=== PATIENT | male | born 1965 | race Two or more races ===

== ENCOUNTER 2024-12-27 13:13 | Emergency (ER) | payer MEDICAID, OTHER ==
[~2024-12-27] VITALS: Ht 180.3 cm; Wt 100.0 kg
[2024-12-27] MEDS ORDERED: ONDANSETRON HCL 4 MG/2 ML VIAL IV ONE (13:30)
[2024-12-27] MEDS ORDERED: SODIUM CHLORIDE 0.9% 1,000 ML IV ONE (13:30)
[2024-12-27 13:52] VITALS: BP 139/85; PULSE 88; RESP 16; TEMP 99; O2SAT 99
[2024-12-27 14:00] LABS: Hematocrit 43.3 % (41.0-53.0); Hemoglobin 14.9 g/dL (13.5-17.5); Mean Corpuscular Hemoglobin 31.9 pg (28.0-32.0); Mean Corpuscular Volume 92.5 fL (80.0-100.0); Nucleated Red Blood Cells % 0.1 %
[2024-12-27 14:15] LABS: Alanine Aminotransferase 27 U/L (7-40); Albumin 4.8 g/dL (3.2-4.8); Alkaline Phosphatase 66 U/L (46-116); Anion Gap 16 (5-15); BUN/Creatinine Ratio 16.1 (10.0-20.0); Blood Urea Nitrogen 18 mg/dL (9-23); Calcium 9.7 mg/dL (8.7-10.4); Carbon Dioxide 23 mmol/L (20-31); Chloride 103 mmol/L (98-107); Glucose 104 mg/dL (74-106); Potassium 4.3 mmol/L (3.5-5.1); Sodium 142 mmol/L (136-145); Total Protein 6.9 g/dL (5.7-8.2)
[2024-12-27 14:20] LABS: Bilirubin, Total 1.4 mg/dL (0.2-1.0)
[2024-12-27] MEDS ORDERED: HALOPERIDOL LACTATE 5 MG/ML INJ VIAL IM ONE (14:30)
--- NOTE | 2024-12-27 14:30 | DVH ---
CT HEAD WITHOUT CONTRAST INDICATION: syncope EXAM DATE: 12/27/2024 02:02 PM COMPARISON: None RADIATION DOSE: CTDIvol: 59 mGy, DLP: 1055 mGy*cm PROCEDURE: CT scans of the head were obtained from the vertex to the skull base. Sagittal and coronal reconstructions were provided. All CT scans at this medical facility are performed using dose modulation techniques as appropriate t o a performed exam including the following: Automated exposure control was utilized; adjustment of th e MA and/or KV according to patient size; and use of iterative reconstruction technique. FINDINGS: There is sulcal and ventricular prominence. The brainshows normal morphology and smith-whi te matter differentiation, without intracranial hemorrhage, extra-axial fluid collection, mass effect or acute large vessel infarct. The ventricles are normal in size. The basal cisterns are patent. The skull and visible facial bones are intact. The paranasal sinuses, mastoid air cells and middle ear c avities are well-aerated. The soft tissues of the scalp are unremarkable. IMPRESSION: No acute intracranial abnormality.
[2024-12-27 14:33] LABS: Lactic Acid w/Reflex 3.3 mmol/L (0.4-2.0)
--- NOTE | 2024-12-27 14:38 | DVH ---
CHEST RADIOGRAPH Indication: syncope Technique: Single frontal view of the chest was obtained Comparison: None FINDINGS: Lines and Tubes: None Lungs: No focal consolidation. Questionable 1 cm nodule left upper lung field may represent fortuitou s confluence of the left 6th rib and the scapula. Pulmonary nodule is of concern recommend lateral ch est x-ray and/or CT chest. Pleura: No effusion. No pneumothorax. Cardiomediastinal contours: Unremarkable Bones: No acute osseous abnormality. IMPRESSION: 1. No acute cardiopulmonary disease.
--- NOTE | 2024-12-27 15:18 | ECG ---
[facility] Test Date: 2024-12-27 Test Time: 13:16:59 Pat Name: LOUIE DEL REAL Department: ED Room: Gender: M [employer] Lead: TING : 1965 Requested By: JOSE M PHIPPS Order Number: [id number] Reading MD: Manuel Pina Measurements Intervals [place] Rate: 94 P: 46 MN: 184 QRS: 148 QRSD: 89 T: 40 QT: 373 QTc: 467 Interpretive Statements Sinus rhythm Right axis deviation Electronically Signed On 12-28-2024 19:06:19 PDT by Manuel Pina Please click the below link to view image of tracing.
[2024-12-27 15:50] LABS: Urine Protein, UAD Negative (Negative)
== END 2024-12-27 15:22 | disposition left against medical advice (07) ==
LOC: EDBD 13:13 → ER 13:13
DX: R53.1 Weakness (principal); R51.9 Headache, unspecified; Z53.21 Procedure and treatment not carried out due to patient leaving prior to being seen by health care provider
CPT/HCPCS: 36415; 70450; 71045; 80053; 80320; 81001; 83605; 84484; 85025; 93005; J2405

== ENCOUNTER 2024-12-27 16:23 | Inpatient (IN) | payer MEDICAID, OTHER ==
[~2024-12-27] VITALS: Ht 182.9 cm; Wt 99.0 kg
[2024-12-27] MEDS: SODIUM CHLORIDE 0.9% 1,000 ML IV ONE ×2 (17:23→18:46)
[2024-12-27] MEDS: ONDANSETRON HCL 4 MG/2 ML VIAL IV ONE (17:33)
--- NOTE | 2024-12-27 18:21 | ED.PDOC ---
History of Present Illness HPI Comments 59-year-old male who was seen here several hours ago. Patient had negative labs and CT scan at the time. Patient was intoxicated with alcohol. Patient eloped from the emergency room and went to [facility] where he had another witnessed syncopal event. Patient eloped against a bench and did not hit his head per bystanders. Patient has a agreed to a full workup and evaluation and potential admission at this time. Chief Complaint: Syncope Time Seen by MD: 16:31 Allergies: Coded Allergies: NO KNOWN ALLERGIES (Unverified , 12/27/24) Information Source: Patient, Emergency Med Personnel Mode of Arrival: EMS All Other Systems: Deferred Physical Exam General Appearance: Obese HEENT: Pharynx Normal Neck: Normal Inspection Respiratory: No Respiratory Distress Cardiovascular: Tachycardia Breast Exam: Deferred Gastrointestinal: Non Tender Genitalia: Deferred Pelvic: Deferred Rectal: Deferred Extremities: No pedal edema Neurologic: Other (Slurred speech) Cerebellar Function: NOT DONE Reflexes: NOT DONE Skin: Normal Color Lymphatic: NOT DONE Was a procedure done? Was a procedure done?: No Differential Dx Considerations may include: Cardiac arrhythmia, electrolyte abnormality, infectious etiology, poly substance abuse, alcohol intoxication X-Ray, Labs, Meds, VS Vital Signs Date Time Temp Pulse Resp B/P (MAP) Pulse Ox O2 Delivery O2 Flow Rate FiO2 12/27/24 16:25 97.7 101 20 95/64 (74) 96 97.7 Current Medications Medications (Trade) Dose Ordered Sig/Justo Route Start Time Stop Time Status Last Admin Sodium Chloride 1,000 ml @ 1,000 mls/hr Q1H ONCE IV 12/27/24 16:45 12/27/24 17:44 DC 12/27/24 17:23 Ondansetron HCl (Zofran) 4 mg ONCE ONCE IV 12/27/24 17:30 12/27/24 17:31 DC 12/27/24 17:33 Time of 1ST Reevaluation: 18:20 Reevaluation 1ST: Improved Patient Education/Counseling: Diagnosis, Treatment Family Education/Counseling: No Family Present SEPSIS Sepsis Screen Date sepsis recognized/suspect: Dec 27, 2024 Time Sepsis recognized/suspect: 1624 Recent Procedure: No On Antibiotic Therapy: No Respiratory Rate >20: No Heart Rate >90: Yes Temp<36 C (96.8 F) or >38.3 C: No SBP <90 or MAP <65 mmHG: No New Acute Mental Status Change: No Is the patient on CPAP, BIPAP,: No Physician Orders Sodium Chloride 0.9% (12/27/24 17:30) Vital Signs Date Time Temp Pulse Resp B/P (MAP) Pulse Ox O2 Delivery O2 Flow Rate FiO2 12/27/24 16:25 97.7 101 20 95/64 (74) 96 97.7 Medications Medications Dose Ordered Sig/Justo Route Start Time Stop Time Status Last Admin Dose Admin Ondansetron HCl 4 mg ONCE ONCE IV 12/27/24 17:30 12/27/24 17:31 DC 12/27/24 17:33 Sodium Chloride 1,000 ml @ 1,000 mls/hr Q1H ONCE IV 12/27/24 16:45 12/27/24 17:44 DC 12/27/24 17:23 Departure 1 Departure Time of Disposition: 18:20 (Patient with multiple syncopal events today. Patient's labs and CT and x-ray from several hours ago are all benign other than his elevated alcohol level. We will admit patient for further workup and expert consultation) Impression: Primary Impression: Syncope and collapse Additional Impressions: Alcohol intoxication Qualified Codes: F10.921 - Alcohol use, unspecified with intoxication delirium Generalized weakness Disposition: ADMITTED INPATIENT Admit to: Med Surg Condition: Serious Critical Care Note Critical Care Time?: No Stability Stability form required: No Heart Score Heart Score: Heart Score Response (Comments) Value History N/A 0 EKG N/A 0 Age N/A 0 Risk Factors N/A 0 Troponin N/A 0 Total 0 JOSE M PHIPPS MD Dec 27, 2024 18:21
--- NOTE | 2024-12-27 19:27 | DVHHP2 ---
Admitting Diagnosis: Syncope History of Present Illness 59-year-old male who was seen here several hours ago. Patient had negative labs and CT scan at the time. Patient was intoxicated with alcohol. Patient eloped from the emergency room and went to [facility] where he had another witnessed syncopal event. Patient eloped against a bench and did not hit his head per bystanders. Patient has a agreed to a full workup and evaluation and potential admission at this time. Allergies: Coded Allergies: NO KNOWN ALLERGIES (Unverified , 12/27/24) Vital Signs Vital Signs Date Time Temp Pulse Resp B/P (MAP) Pulse Ox O2 Delivery O2 Flow Rate FiO2 12/27/24 16:25 97.7 101 20 95/64 (74) 96 97.7 Physical Exam Generally 69 years old male, well nourished well developed. Mild distress HEENT-facial trauma to nose bridge no acute bleeding Heart-regular rate and rhythm Lungs clear to auscultate Abdomen soft nontender nondistended Musculoskeletal-no edema cyanosis Neuro-AO x3, no focal deficits SEPSIS Sepsis Screen Date sepsis recognized/suspect: Dec 27, 2024 Time Sepsis recognized/suspect: 1624 Recent Procedure: No On Antibiotic Therapy: No Respiratory Rate >20: No Heart Rate >90: Yes Temp<36 C (96.8 F) or >38.3 C: No SBP <90 or MAP <65 mmHG: No New Acute Mental Status Change: No Is the patient on CPAP, BIPAP,: No Vital Signs Date Time Temp Pulse Resp B/P (MAP) Pulse Ox O2 Delivery O2 Flow Rate FiO2 12/27/24 16:25 97.7 101 20 95/64 (74) 96 97.7 Medications Medications Dose Ordered Sig/Justo Route Start Time Stop Time Status Last Admin Dose Admin Ondansetron HCl 4 mg ONCE ONCE IV 12/27/24 17:30 12/27/24 17:31 DC 12/27/24 17:33 Sodium Chloride 1,000 ml @ 1,000 mls/hr Q1H ONCE IV 12/27/24 16:45 12/27/24 17:44 DC 12/27/24 17:23 Sodium Chloride 1,000 ml @ 1,000 mls/hr Q1H ONCE IV 12/27/24 17:30 12/27/24 18:29 DC 12/27/24 18:46 Primary Diagnosis Syncope Alcohol intoxication Plan Elevated alcohol level Lactic acidosis IV fluids, 125 cc an hour 2 LR bolus Alcohol withdrawal floor protocol Thiamine, folate, multivitamin Monitor for withdrawal Full code Lovenox for DVT prophylaxis PPI for GI prophylaxis Plan discussed with: Patient Problems List: (1) Syncope and collapse Status: Acute (2) Generalized weakness Status: Acute (3) Alcohol intoxication Status: Acute Date of Service: Dec 27, 2024 Billing Provider: MISTY WARNER MD Common Visit Codes: [id number] INP/OBS CARE (MOD) MISTY WARNER MD Dec 27, 2024 19:27
[2024-12-27 19:30] VITALS: PULSE 93; RESP 16; O2SAT 96
[2024-12-27] MEDS ORDERED: DOCUSATE SOD 100 MG CAP PO PRN (19:30)
[2024-12-27] MEDS: FOLIC ACID 1 MG TAB PO ONE (20:36)
[2024-12-27] MEDS: SODIUM CHLOR 0.9% PF (SALINE LOCK) 10ML VIAL/SYR IV SCH (20:37)
[2024-12-27] MEDS: LACTATED RINGER'S 2,000 ML IV ONE (20:37)
[2024-12-27] MEDS: THIAMINE HCL 100 MG TAB PO ONE (20:37)
[2024-12-27] MEDS: LACTATED RINGER'S 1,000 ML IV ONE (20:37)
[2024-12-27 22:00] VITALS: BP 138/83; PULSE 99; RESP 20; TEMP 98.6; O2SAT 96
[2024-12-28] VITALS (10 sets, daily range): BP systolic 112–164; BP diastolic 70–99; PULSE 70–104; RESP 18–20; TEMP 98.1–98.8; O2SAT 18–99
[2024-12-28] MEDS: LORazepam 2MG/ML-1ML VIAL IV PRN (00:13)
[2024-12-28 07:00] LABS: Hematocrit 36.1 % (41.0-53.0); Hemoglobin 12.6 g/dL (13.5-17.5); Mean Corpuscular Hemoglobin 32.0 pg (28.0-32.0); Mean Corpuscular Volume 91.9 fL (80.0-100.0); Nucleated Red Blood Cells % 0.2 %
[2024-12-28 07:04] LABS: Alanine Aminotransferase 22 U/L (7-40); Alkaline Phosphatase 55 U/L (46-116); Anion Gap 12 (5-15); BUN/Creatinine Ratio 18.9 (10.0-20.0); Blood Urea Nitrogen 17 mg/dL (9-23); Calcium 8.7 mg/dL (8.7-10.4); Carbon Dioxide 24 mmol/L (20-31); Chloride 102 mmol/L (98-107); Glucose 83 mg/dL (74-106); Magnesium 2.1 mg/dL (1.6-2.6); Potassium 3.9 mmol/L (3.5-5.1); Sodium 138 mmol/L (136-145); Total Protein 5.9 g/dL (5.7-8.2)
[2024-12-28 07:05] LABS: Albumin 4.0 g/dL (3.2-4.8)
[2024-12-28 07:07] LABS: Bilirubin, Total 2.3 mg/dL (0.2-1.0)
[2024-12-28] MEDS: MULTIPLE VITAMIN TAB PO SCH (10:03)
[2024-12-28] MEDS: ENOXAPARIN SOD 40 MG/0.4 ML SYRINGE SC SCH (10:05)
--- NOTE | 2024-12-28 15:59 | DVHPN2 ---
Subjective Patient is comfortable in bed. Alert awake oriented x3. Says he takes anti anxiolytic medications at home and requesting while in the hospital. Denies any chest pain or shortness for breath. Other review of systems reviewed normal. Changes from previous H/P or p: No Changes Objective Vitals Vital Signs Date Time Temp Pulse Resp B/P (MAP) Pulse Ox O2 Delivery O2 Flow Rate FiO2 12/28/24 13:00 98.5 95 18 154/92 (112) 92 98.5 12/28/24 08:20 Room Air* 0 21 Intake/Output Intake and Output 12/28/24 07:00 Intake Total 1400 ml Output Total 400 ml Balance 1000 ml Intake Oral 400 ml IV Total 1000 ml Output Urine Total 400 ml Exam Alert awake oriented x3. HEENT neck supple no JVD pupils equal round reactive to light. Heart regular rate and rhythm S1-S2 without murmurs. Lungs fair air movement chest tube will expansion no rales wheezes. Abdomen soft obese positive bowel sounds nontender. Extremities no edema positive pulses. Neurologically no focal deficits noted. No nystagmus or asterixis noted. Medications Current Medications Medications Dose Ordered Sig/Justo Route Start Time Stop Time Status Last Admin Dose Admin Sodium Chloride 10 ml Q8HR IV 12/27/24 22:00 12/28/24 14:51 10 ML Docusate Sodium 100 mg BIDPRN PRN PO 12/27/24 19:30 Acetaminophen 650 mg Q6HP PRN PO 12/27/24 19:30 Acetaminophen/ Hydrocodone Bitart 1 tab Q4HP PRN PO 12/27/24 19:30 Ondansetron HCl 4 mg Q4HP PRN IV 12/27/24 19:30 Enoxaparin Sodium 40 mg DAILY SC 12/28/24 10:00 12/28/24 10:05 40 MG Multivitamins 1 tab DAILY PO 12/28/24 10:00 12/28/24 10:03 1 TAB Lorazepam 1 mg Q2HPRN PRN IV 12/27/24 19:30 12/28/24 11:13 1 MG Quetiapine Fumarate 25 mg HS PO 12/28/24 22:00 UNV Folic Acid 1 mg/ Magnesium Sulfate 8 meq/ Multivitamins 10 ml/Thiamine HCl 100 mg/Sodium Chloride 1,013.2 ml @ 126.247 mls/hr DAILY@1800 INJ 12/28/24 18:00 UNV Chlordiazepoxide HCl 5 mg QID PO 12/28/24 18:00 UNV Laboratory Results Laboratory Tests 12/28/24 05:54 Chemistry Test 12/28/24 05:54 Albumin 4.0 g/dL (3.2-4.8) Calcium Level 8.7 mg/dL (8.7-10.4) Magnesium Level 2.1 mg/dL (1.6-2.6) Total Protein 5.9 g/dL (5.7-8.2) LFT Test 12/28/24 05:54 Alanine Aminotransferase (ALT) 22 U/L (7-40) Alkaline Phosphatase 55 U/L (46-116) Aspartate Amino Transferase (AST) 41 U/L (13-40) H Total Bilirubin 2.3 mg/dL (0.2-1.0) H Assessment/Plan Assessment/Plan We will check alcohol level. I will put him on alcohol withdrawal but protocol with the Librium scheduled dose. We will have a tele psych consultation given his history of anxiety and apparent psychiatric felt to be bipolar disorder. Otherwise continue other medications. Continue supportive care and treatment. Social Service consultation for drug rehab programs and resources for alcohol use disorder. Otherwise further clinical management per clinical course. Discussed with the patient and nurse regarding care plan including alcohol cessation. Plan discussed with: Patient, Other My Orders Orders - RENU PEPPER MD Procedure Category Date Status Time Lactic Acid W/ Reflex LAB 12/28/24 In Process Order 14:21 Lactic Acid W/ Reflex LAB 12/29/24 Verified Order 04:00 Quetiapine Fumarate PHA 12/28/24 Logged Tablet (Seroquel Tab 22:00 Soc Telemed Psych CONS 12/28/24 Transmitted Consult 14:21 Folic Acid... PHA 12/28/24 Logged 18:00 Chlordiazepoxide Hcl PHA 12/28/24 Logged Capsule (Librium Ca 18:00 Problem List: (1) Alcohol intoxication (2) Generalized weakness (3) Syncope and collapse Date of Service: Dec 28, 2024 Billing Provider: RENU PEPPER MD Common Visit Codes: [id number] INP/OBS CARE(MOD) RENU PEPPER MD Dec 28, 2024 15:59
[2024-12-28 16:24] LABS: Lactic Acid w/Reflex 2.8 mmol/L (0.4-2.0)
[2024-12-28] MEDS: FOLIC ACID 1 MG, MAGNESIUM SULF SDV 50% 8 MEQ, MULTIPLE VITAMIN 10 ML, THIAMINE INJ 100... INJ SCH (18:00)
--- NOTE | 2024-12-28 21:11 | DVHINCON2 ---
Date of Service if different f: Dec 28, 2024 Consultation (ANCHORAGE) Labs Laboratory Tests Test 12/28/24 05:54 12/28/24 15:38 12/28/24 18:33 White Blood Count 7.0 10^3/uL (4.4-10.8) Red Blood Count 3.93 10^6/uL (4.5-5.90) Hemoglobin 12.6 g/dL (13.5-17.5) Hematocrit 36.1 % (41.0-53.0) Mean Corpuscular Volume 91.9 fL (80.0-100.0) Mean Corpuscular Hemoglobin 32.0 pg (28.0-32.0) Mean Corpuscular Hemoglobin Concent 34.9 g/dL (32.0-36.0) Red Cell Distribution Width 13.7 % (11.8-14.3) Platelet Count 188 10^3/uL (140-450) Mean Platelet Volume 7.1 fL (6.9-10.8) Neutrophils (%) (Auto) 71.0 % (37.0-80.0) Lymphocytes (%) (Auto) 17.3 % (10.0-50.0) Monocytes (%) (Auto) 11.1 % (0.0-12.0) Eosinophils (%) (Auto) 0.3 % (0.0-7.0) Basophils (%) (Auto) 0.3 % (0.0-2.0) Neutrophils # (Auto) 5.0 10 ^3/uL (1.6-8.6) Lymphocytes # (Auto) 1.2 10 ^3/uL (0.4-5.4) Monocytes # (Auto) 0.8 10 ^3/uL (0-1.3) Eosinophils # (Auto) 0 10 ^3/uL (0-0.8) Basophils # (Auto) 0 10 ^3/uL (0-0.2) Nucleated Red Blood Cells 0.2 % Sodium Level 138 mmol/L (136-145) Potassium Level 3.9 mmol/L (3.5-5.1) Chloride Level 102 mmol/L (98-107) Carbon Dioxide Level 24 mmol/L (20-31) Anion Gap 12 (5-15) Blood Urea Nitrogen 17 mg/dL (9-23) Creatinine 0.90 mg/dL (0.700-1.30) Glomerular Filtration Rate Calc 100 mL/min (>90) BUN/Creatinine Ratio 18.9 (10.0-20.0) Serum Glucose 83 mg/dL (74-106) Calcium Level 8.7 mg/dL (8.7-10.4) Magnesium Level 2.1 mg/dL (1.6-2.6) Total Bilirubin 2.3 mg/dL (0.2-1.0) Aspartate Amino Transf (AST/SGOT) 41 U/L (13-40) Alanine Aminotransferase (ALT/SGPT) 22 U/L (7-40) Alkaline Phosphatase 55 U/L (46-116) Total Protein 5.9 g/dL (5.7-8.2) Albumin 4.0 g/dL (3.2-4.8) Plasma/Serum Blood Alcohol < 3.0 mg/dL (<10) Lactic Acid Level 1.3 mmol/L (0.4-2.0) Appetite: Fair Appearance: Stated age, Disheveled Psychomotor activity: Restless Behavioral: Cooperative Eye contact: Appropriate Speech: Pressured, Rapid Affect: Hypermanic Mood: Elevated Thought processes: Flight of ideas Thought content: Hallucinations (auditory) Suicidal ideations: Absent Homicidal ideations: Absent Orientation: Person, Place, Time, Situation Memory intact: Recent Intellect: Average Abstractability: Marginal Concentration: Limited Attention: Limited Judgement: Marginal Insight: Limited Vitals Vital Signs Date Time Temp Pulse Resp B/P (MAP) Pulse Ox O2 Delivery O2 Flow Rate FiO2 12/28/24 17:03 98.1 101 18 164/99 (120) 95 98.1 12/28/24 08:20 Room Air* 0 21 Current medications Current Medications Medications Dose Ordered Sig/Justo Route Start Time Stop Time Status Last Admin Dose Admin Sodium Chloride 10 ml Q8HR IV 12/27/24 22:00 12/28/24 14:51 10 ML Docusate Sodium 100 mg BIDPRN PRN PO 12/27/24 19:30 Acetaminophen 650 mg Q6HP PRN PO 12/27/24 19:30 Acetaminophen/ Hydrocodone Bitart 1 tab Q4HP PRN PO 12/27/24 19:30 Ondansetron HCl 4 mg Q4HP PRN IV 12/27/24 19:30 Enoxaparin Sodium 40 mg DAILY SC 12/28/24 10:00 12/28/24 10:05 40 MG Multivitamins 1 tab DAILY PO 12/28/24 10:00 12/28/24 10:03 1 TAB Lorazepam 1 mg Q2HPRN PRN IV 12/27/24 19:30 12/28/24 19:32 1 MG Quetiapine Fumarate 25 mg HS PO 12/28/24 22:00 UNV Folic Acid 1 mg/ Magnesium Sulfate 8 meq/ Multivitamins 10 ml/Thiamine HCl 100 mg/Sodium Chloride 1,013.2 ml @ 126.247 mls/hr DAILY@1800 INJ 12/28/24 18:00 UNV Chlordiazepoxide HCl 5 mg QID PO 12/28/24 18:00 UNV Medication adjusted: Yes Diagnosis: Bipolar disorder Plan : This is a 59-year-old male with hx of bipolar disorder and reporting psychotic symptoms with elevated mood recommend to restart Latuda 40mg po evening with dinner. patient may transfer to inpatient psychiatric v re-evaluation after medical clearance here History of Present Illness Reason for Consult : reported history of anxiety and bipolar disorder HPI : This is a 59-year-old male with prior hx of bipolar disorder, polysubstance use, presents here for syncope episode. Patient is evaluated via telepsychiatry. Patient reports he often has "bipolar attack" and often hearing voices and seeing people. He does have this presently while hospitalized here. He denies command AH. He He reports use of methamphetamine for many years, last use was one week ago. he drinks about 10 beers per day. Patient is tangential with rapid, pressured speech. He reports poor sleep, tosses and turns all night. He has to drink a lot of alcohol to sleep. He often rambling, difficult to interrupt. He denies feeling depressed, hopeless or anhedonia. He denies paranoid thoughts. he denies suicidal/homicidal ideation Past Psychiatric History : He reports prior psychiatric admissions and holds. He denies prior suicide attempts. he reports hx of bipolar disorder and has outpati ent psychiatrist. he is prescribed Latuda 40mg. He has not been compliant for about one week. Past Medical History : per ahmet review Social History : He lives in a mobile home. He had a common law who passes away 2 years ago. He reports use of meth, alcohol use for many years. He denies other substance use. He denies any known family history. JASVIR HARO DNP Dec 28, 2024 21:11
[2024-12-29] VITALS (42 sets, daily range): BP systolic 130–180; BP diastolic 78–113; PULSE 56–104; RESP 13–46; TEMP 97.4–98.3; O2SAT 91–100
[2024-12-29] MEDS: LORazepam 2MG/ML-1ML VIAL IV PRN (10:02)
[2024-12-29 10:16] LABS: Alanine Aminotransferase 22 U/L (7-40); Albumin 4.0 g/dL (3.2-4.8); Alkaline Phosphatase 53 U/L (46-116); Anion Gap 10 (5-15); BUN/Creatinine Ratio 17.4 (10.0-20.0); Blood Urea Nitrogen 15 mg/dL (9-23); Calcium 8.9 mg/dL (8.7-10.4); Carbon Dioxide 26 mmol/L (20-31); Chloride 105 mmol/L (98-107); Glucose 89 mg/dL (74-106); Magnesium 1.8 mg/dL (1.6-2.6); Potassium 3.5 mmol/L (3.5-5.1); Sodium 141 mmol/L (136-145); Total Protein 6.0 g/dL (5.7-8.2)
[2024-12-29 10:17] LABS: Bilirubin, Total 1.7 mg/dL (0.2-1.0)
[2024-12-29 10:23] LABS: Hepatitis B Surface Antigen Negative (Negative)
[2024-12-29 10:32] LABS: Hematocrit 37.5 % (41.0-53.0); Hemoglobin 12.8 g/dL (13.5-17.5); Mean Corpuscular Hemoglobin 31.8 pg (28.0-32.0); Mean Corpuscular Volume 92.8 fL (80.0-100.0); Nucleated Red Blood Cells % 0.0 %
[2024-12-29 10:41] LABS: Hepatitis C Antibody Negative (Negative)
--- NOTE | 2024-12-29 16:18 | DVHPN2 ---
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 Patient is requiring four point restraints due to severe agitation. Changes from previous H/P or p: No Changes Objective Vitals Vital Signs Date Time Temp Pulse Resp B/P (MAP) Pulse Ox O2 Delivery O2 Flow Rate FiO2 12/29/24 16:00 75 12/29/24 15:45 16 146/86 (106) 96 12/29/24 14:30 Room Air* 0 21 12/29/24 14:15 98.3 98.3 Intake/Output Intake and Output 12/29/24 07:00 Intake Total 936 ml Balance 936 ml Intake Oral 936 ml # Voids 4 # Bowel Movements 1 Exam He is alert and awake oriented name. He is agitated. However able to take medication and swallow water with health. In four-point restraints. HEENT neck supple no JVD. Pupils equal round react to light. Heart regular rate and rhythm tachycardia S1 plus S2. Lungs fair air movement without rales wheezes poor inspiratory effort. Abdomen obese soft nontender positive bowel sounds. Extremities no edema positive pulses. Medications Current Medications Medications Dose Ordered Sig/Justo Route Start Time Stop Time Status Last Admin Dose Admin Sodium Chloride 10 ml Q8HR IV 12/27/24 22:00 12/29/24 14:45 10 ML Docusate Sodium 100 mg BIDPRN PRN PO 12/27/24 19:30 Acetaminophen 650 mg Q6HP PRN PO 12/27/24 19:30 Acetaminophen/ Hydrocodone Bitart 1 tab Q4HP PRN PO 12/27/24 19:30 Ondansetron HCl 4 mg Q4HP PRN IV 12/27/24 19:30 Enoxaparin Sodium 40 mg DAILY SC 12/28/24 10:00 12/29/24 12:31 40 MG Multivitamins 1 tab DAILY PO 12/28/24 10:00 12/28/24 10:03 1 TAB Quetiapine Fumarate 25 mg HS PO 12/28/24 22:00 12/28/24 21:49 25 MG Folic Acid 1 mg/ Magnesium Sulfate 8 meq/ Multivitamins 10 ml/Thiamine HCl 100 mg/Sodium Chloride 1,013.2 ml @ 126.247 mls/hr DAILY@1800 INJ 12/28/24 18:00 12/28/24 18:00 126.247 MLS/HR Lorazepam 2 mg Q4HPRN PRN IV 12/29/24 09:15 Hold 12/29/24 10:02 2 MG Chlordiazepoxide HCl 10 mg QID PO 12/29/24 10:00 12/29/24 12:30 10 MG Lorazepam 50 mg/ Sodium Chloride 50 ml @ 1 mls/hr Q24H IV 12/29/24 14:30 12/29/24 15:09 1 MLS/HR Laboratory Results Laboratory Tests 12/29/24 09:48 Chemistry Test 12/29/24 09:48 Albumin 4.0 g/dL (3.2-4.8) Calcium Level 8.9 mg/dL (8.7-10.4) Magnesium Level 1.8 mg/dL (1.6-2.6) Total Protein 6.0 g/dL (5.7-8.2) LFT Test 12/29/24 09:48 Alanine Aminotransferase (ALT) 22 U/L (7-40) Alkaline Phosphatase 53 U/L (46-116) Aspartate Amino Transferase (AST) 48 U/L (13-40) H Total Bilirubin 1.7 mg/dL (0.2-1.0) H Assessment/Plan Assessment/Plan Given his agitation it is possible that patient is going through alcohol withdrawals. Patient is already on alcohol withdrawal protocol. However given his worsening symptoms I will upgrade him to ICU and start him on Ativan drip for alcohol withdrawal symptoms. Aspiration precautions. Otherwise continue rest of supportive care and treatment in clinic fluids as he is on. Further clinical management per clinical course. Discussed with the nurse regarding care plan. Plan discussed with: Patient, Other My Orders Orders - RENU PEPPER MD Procedure Category Date Status Time Lorazepam 2mg/Ml Inj PHA 12/29/24 In Process (Ativan Inj) 09:15 Chlordiazepoxide Hcl PHA 12/29/24 In Process Capsule (Librium Ca 10:00 Transfer Orders XFER 12/29/24 Transmitted 12:11 Sodium Chl 0.9% (Ns) PHA 12/29/24 In Process W/Lorazepam Mdv 2mg 14:30 Mrsa Screen SUSIE 12/29/24 In Process 14:45 Communication Order ORDERS 12/29/24 Transmitted 14:51 Problem List: (1) Alcohol intoxication (2) Generalized weakness (3) Syncope and collapse Date of Service: Dec 29, 2024 Billing Provider: RENU PEPPER MD Common Visit Codes: [id number] INP/OBS CARE(MOD) RENU PEPPER MD Dec 29, 2024 16:18
[2024-12-29 17:19] LABS: Benzodiazephine Screen, Urine Neg (NEGATIVE)
[2024-12-29 17:40] LABS: Amphetamine Screen, Urine Pos (NEGATIVE); Barbiturate Scree,Urine Neg (NEGATIVE); Cannabinoid Screen, Urine Neg (NEGATIVE); Cocaine Screen, Urine Neg (NEGATIVE); Opiate Scree,Urine Neg (NEGATIVE); Phencyclidine Screen, Urine Neg (NEGATIVE)
[2024-12-30] VITALS (57 sets, daily range): BP systolic 107–150; BP diastolic 66–106; PULSE 58–100; RESP 12–22; TEMP 97.3–99; O2SAT 76–100
[2024-12-30] MEDS: D5W/SOD CHL 0.45% 1,000 ML IV SCH (03:04)
[2024-12-30 03:44] LABS: Hematocrit 39.0 % (41.0-53.0); Hemoglobin 12.9 g/dL (13.5-17.5); Mean Corpuscular Hemoglobin 31.3 pg (28.0-32.0); Mean Corpuscular Volume 94.7 fL (80.0-100.0); Nucleated Red Blood Cells % 0.1 %
[2024-12-30 04:01] LABS: Alanine Aminotransferase 19 U/L (7-40); Albumin 3.7 g/dL (3.2-4.8); Alkaline Phosphatase 48 U/L (46-116); Anion Gap 9 (5-15); BUN/Creatinine Ratio 15.7 (10.0-20.0); Blood Urea Nitrogen 11 mg/dL (9-23); Calcium 9.0 mg/dL (8.7-10.4); Carbon Dioxide 24 mmol/L (20-31); Chloride 106 mmol/L (98-107); Glucose 80 mg/dL (74-106); Magnesium 2.1 mg/dL (1.6-2.6); Sodium 139 mmol/L (136-145); Total Protein 5.7 g/dL (5.7-8.2)
[2024-12-30 04:05] LABS: Bilirubin, Total 1.9 mg/dL (0.2-1.0); Potassium 3.3 mmol/L (3.5-5.1)
[2024-12-30] MEDS: ACETAMINOPHEN 325 MG TAB PO PRN (09:59)
--- NOTE | 2024-12-30 13:23 | DVHPN2 ---
Subjective Overnight he is on Ativan drip for alcohol withdrawals. This morning his mentation has significantly improved. He is calm and pleasant. Alert and awake oriented to place and person. Changes from previous H/P or p: No Changes Objective Vitals Vital Signs Date Time Temp Pulse Resp B/P (MAP) Pulse Ox O2 Delivery O2 Flow Rate FiO2 12/30/24 13:15 91 14 123/83 (96) 98 12/30/24 12:00 97.5 97.5 12/30/24 12:00 Room Air* 0 21 Intake/Output Intake and Output 12/30/24 07:00 Intake Total 1708.941 ml Output Total 850 ml Balance 858.941 ml IV Total 1708.941 ml Output Urine Total 850 ml # Voids 5 Exam Comfortable in bed no acute distress. HEENT neck supple no JVD. Pupils equal round react to light. Heart regular rate and rhythm tachycardia S1 plus S2. Lungs fair air movement without rales wheezes poor inspiratory effort. Abdomen obese soft nontender positive bowel sounds. Extremities no edema positive pulses. Medications Current Medications Medications Dose Ordered Sig/Justo Route Start Time Stop Time Status Last Admin Dose Admin Sodium Chloride 10 ml Q8HR IV 12/27/24 22:00 12/30/24 06:26 10 ML Docusate Sodium 100 mg BIDPRN PRN PO 12/27/24 19:30 Acetaminophen 650 mg Q6HP PRN PO 12/27/24 19:30 12/30/24 09:59 650 MG Acetaminophen/ Hydrocodone Bitart 1 tab Q4HP PRN PO 12/27/24 19:30 Ondansetron HCl 4 mg Q4HP PRN IV 12/27/24 19:30 Enoxaparin Sodium 40 mg DAILY SC 12/28/24 10:00 12/30/24 09:59 40 MG Multivitamins 1 tab DAILY PO 12/28/24 10:00 12/30/24 09:59 1 TAB Folic Acid 1 mg/ Magnesium Sulfate 8 meq/ Multivitamins 10 ml/Thiamine HCl 100 mg/Sodium Chloride 1,013.2 ml @ 126.247 mls/hr DAILY@1800 INJ 12/28/24 18:00 12/29/24 18:00 126.247 MLS/HR Lorazepam 2 mg Q4HPRN PRN IV 12/29/24 09:15 12/30/24 10:00 2 MG Chlordiazepoxide HCl 10 mg Q4HR PO 12/30/24 10:00 12/30/24 12:22 10 MG Quetiapine Fumarate 25 mg HS PO 12/30/24 22:00 UNV Laboratory Results Laboratory Tests 12/30/24 03:20 Chemistry Test 12/30/24 03:20 Albumin 3.7 g/dL (3.2-4.8) Calcium Level 9.0 mg/dL (8.7-10.4) Magnesium Level 2.1 mg/dL (1.6-2.6) Total Protein 5.7 g/dL (5.7-8.2) LFT Test 12/30/24 03:20 Alanine Aminotransferase (ALT) 19 U/L (7-40) Alkaline Phosphatase 48 U/L (46-116) Aspartate Amino Transferase (AST) 40 U/L (13-40) Total Bilirubin 1.9 mg/dL (0.2-1.0) H Microbiology Microbiology Date/Time Source Procedure Growth Status 12/29/24 14:44 Nose MRSA Screen - Final Complete Assessment/Plan Assessment/Plan Given his withdrawals have significantly improved we will DC the Ativan drip and continue IV Ativan as needed basis for withdrawals. We will increase the dose of his oral Librium. Resume his diet. Downgrade from ICU to telemetry floor. Continue rest of supportive care and treatment as he is on. Discussed with the nurse. Plan discussed with: Patient, Other My Orders Orders - RENU PEPPER MD Procedure Category Date Status Time Communication Order ORDERS 12/29/24 Transmitted 14:51 Chlordiazepoxide Hcl PHA 12/30/24 In Process Capsule (Librium Ca 10:00 Regular Diet DIET 12/30/24 Transmitted Lunch Communication Order ORDERS 12/30/24 Transmitted 09:47 Quetiapine Fumarate PHA 12/30/24 Logged Tablet (Seroquel Tab 22:00 Problem List: (1) Alcohol intoxication (2) Generalized weakness (3) Syncope and collapse Date of Service: Dec 30, 2024 Billing Provider: RENU PEPPER MD Common Visit Codes: [id number] INP/OBS CARE(MOD) RENU PEPPER MD Dec 30, 2024 13:23
[2024-12-30] MEDS: ONDANSETRON HCL 4 MG/2 ML VIAL IV PRN (20:26)
[2024-12-30] MEDS: HYDROcodone-ACET 5/325MG TAB PO PRN (20:26)
[2024-12-31] VITALS (8 sets, daily range): BP systolic 120–156; BP diastolic 73–97; PULSE 57–96; RESP 16–19; TEMP 97.7–98.4; O2SAT 93–98
[2024-12-31 06:50] LABS: Hematocrit 38.4 % (41.0-53.0); Hemoglobin 12.8 g/dL (13.5-17.5); Mean Corpuscular Hemoglobin 31.1 pg (28.0-32.0); Mean Corpuscular Volume 93.2 fL (80.0-100.0); Nucleated Red Blood Cells % 0.1 %
[2024-12-31 07:09] LABS: Alanine Aminotransferase 17 U/L (7-40); Albumin 3.7 g/dL (3.2-4.8); Anion Gap 8 (5-15); Bilirubin, Total 1.1 mg/dL (0.2-1.0); Blood Urea Nitrogen 17 mg/dL (9-23); Calcium 9.2 mg/dL (8.7-10.4); Carbon Dioxide 26 mmol/L (20-31); Glucose 83 mg/dL (74-106); Magnesium 2.2 mg/dL (1.6-2.6); Potassium 3.6 mmol/L (3.5-5.1); Sodium 141 mmol/L (136-145)
[2024-12-31 07:15] LABS: Alkaline Phosphatase 46 U/L (46-116); Chloride 107 mmol/L (98-107); Total Protein 5.6 g/dL (5.7-8.2)
[2024-12-31 07:28] LABS: BUN/Creatinine Ratio 23.0 (10.0-20.0)
--- NOTE | 2024-12-31 13:25 | DVHPN2 ---
Subjective Clinically stable. Withdrawal seems to have improved. Alert and awake oriented to place and person. Changes from previous H/P or p: No Changes Objective Vitals Vital Signs Date Time Temp Pulse Resp B/P (MAP) Pulse Ox O2 Delivery O2 Flow Rate FiO2 12/31/24 12:31 98.4 65 16 146/96 (113) 93 98.4 12/31/24 08:10 Room Air* 0 21 Intake/Output Intake and Output 12/31/24 07:00 Intake Total 2835.2 ml Output Total 2400 ml Balance 435.2 ml Intake Oral 1445 ml IV Total 1390.2 ml Output Urine Total 2400 ml # Voids 1 # Bowel Movements 1 Exam Comfortable in bed no acute distress. HEENT neck supple no JVD. Pupils equal round react to light. Heart regular rate and rhythm tachycardia S1 plus S2. Lungs fair air movement without rales wheezes poor inspiratory effort. Abdomen obese soft nontender positive bowel sounds. Extremities no edema positive pulses. Medications Current Medications Medications Dose Ordered Sig/Justo Route Start Time Stop Time Status Last Admin Dose Admin Sodium Chloride 10 ml Q8HR IV 12/27/24 22:00 12/31/24 13:05 10 ML Docusate Sodium 100 mg BIDPRN PRN PO 12/27/24 19:30 Acetaminophen 650 mg Q6HP PRN PO 12/27/24 19:30 12/30/24 21:48 650 MG Acetaminophen/ Hydrocodone Bitart 1 tab Q4HP PRN PO 12/27/24 19:30 12/30/24 20:26 1 TAB Ondansetron HCl 4 mg Q4HP PRN IV 12/27/24 19:30 12/30/24 20:26 4 MG Enoxaparin Sodium 40 mg DAILY SC 12/28/24 10:00 12/31/24 10:42 40 MG Multivitamins 1 tab DAILY PO 12/28/24 10:00 12/31/24 10:41 1 TAB Folic Acid 1 mg/ Magnesium Sulfate 8 meq/ Multivitamins 10 ml/Thiamine HCl 100 mg/Sodium Chloride 1,013.2 ml @ 126.247 mls/hr DAILY@1800 INJ 12/28/24 18:00 12/30/24 18:19 126.247 MLS/HR Lorazepam 2 mg Q4HPRN PRN IV 12/29/24 09:15 12/31/24 04:18 2 MG Quetiapine Fumarate 25 mg HS PO 12/30/24 22:00 12/30/24 21:48 25 MG Chlordiazepoxide HCl 20 mg Q6H PO 12/31/24 14:00 12/31/24 13:05 20 MG Laboratory Results Laboratory Tests 12/31/24 05:04 Chemistry Test 12/31/24 05:04 Albumin 3.7 g/dL (3.2-4.8) Calcium Level 9.2 mg/dL (8.7-10.4) Magnesium Level 2.2 mg/dL (1.6-2.6) Total Protein 5.6 g/dL (5.7-8.2) L LFT Test 12/31/24 05:04 Alanine Aminotransferase (ALT) 17 U/L (7-40) Alkaline Phosphatase 46 U/L (46-116) Aspartate Amino Transferase (AST) 27 U/L (13-40) Total Bilirubin 1.1 mg/dL (0.2-1.0) H Microbiology Microbiology Date/Time Source Procedure Growth Status 12/29/24 14:44 Nose MRSA Screen - Final Complete Assessment/Plan Assessment/Plan I will adjust his Librium. We will add gabapentin as well. Physical therapy. Continue rest of supportive care and treatment. Further clinical management per clinical course. Discussed with the nurse and patient regarding care plan. Plan discussed with: Patient, Other My Orders Orders - RENU PEPPER MD Procedure Category Date Status Time Transfer Orders XFER 12/30/24 Transmitted 14:06 Pt Request For Service PT 12/30/24 Logged 15:47 Chlordiazepoxide Hcl PHA 12/31/24 In Process Capsule (Librium Ca 14:00 Problem List: (1) Alcohol intoxication (2) Generalized weakness (3) Syncope and collapse Date of Service: Dec 31, 2024 Billing Provider: RENU PEPPER MD Common Visit Codes: [id number] INP/OBS CARE(MOD) RENU PEPPER MD Dec 31, 2024 13:25
[2024-12-31] MEDS: GABAPENTIN 400 MG CAP PO SCH (13:42)
[2024-12-31] MEDS: FOLIC ACID 1 MG TAB PO ONE (14:07)
[2024-12-31] MEDS: MAGNESIUM OXIDE 400 MG TAB PO ONE (14:08)
[2024-12-31] MEDS: THIAMINE HCL 100 MG TAB PO ONE (14:08)
[2025-01-01] VITALS (8 sets, daily range): BP systolic 120–152; BP diastolic 68–88; PULSE 54–111; RESP 17–22; TEMP 97.2–98.2; O2SAT 95–98
[2025-01-01] MEDS: FOLIC ACID 1 MG TAB PO SCH (11:38)
[2025-01-01] MEDS: MAGNESIUM OXIDE 400 MG TAB PO SCH (11:38)
[2025-01-01] MEDS: THIAMINE HCL 100 MG TAB PO SCH (11:39)
--- NOTE | 2025-01-01 13:08 | DVHPN2 ---
Subjective Clinically stable. Shakiness is improved. Feeling little bit better. Changes from previous H/P or p: No Changes Objective Vitals Vital Signs Date Time Temp Pulse Resp B/P (MAP) Pulse Ox O2 Delivery O2 Flow Rate FiO2 01/01/25 08:35 97.4 66 18 131/68 (89) 95 97.4 01/01/25 08:10 Room Air* 0 21 Intake/Output Intake and Output 01/01/25 07:00 Intake Total 1700 ml Balance 1700 ml Intake Oral 1700 ml # Voids 7 # Bowel Movements 1 Exam Comfortable in bed no acute distress. HEENT neck supple no JVD. Pupils equal round react to light. Heart regular rate and rhythm tachycardia S1 plus S2. Lungs fair air movement without rales wheezes poor inspiratory effort. Abdomen obese soft nontender positive bowel sounds. Extremities no edema positive pulses. Medications Current Medications Medications Dose Ordered Sig/Justo Route Start Time Stop Time Status Last Admin Dose Admin Sodium Chloride 10 ml Q8HR IV 12/27/24 22:00 01/01/25 05:47 10 ML Docusate Sodium 100 mg BIDPRN PRN PO 12/27/24 19:30 Acetaminophen 650 mg Q6HP PRN PO 12/27/24 19:30 12/30/24 21:48 650 MG Acetaminophen/ Hydrocodone Bitart 1 tab Q4HP PRN PO 12/27/24 19:30 12/31/24 19:50 1 TAB Ondansetron HCl 4 mg Q4HP PRN IV 12/27/24 19:30 12/30/24 20:26 4 MG Enoxaparin Sodium 40 mg DAILY SC 12/28/24 10:00 01/01/25 11:39 40 MG Multivitamins 1 tab DAILY PO 12/28/24 10:00 01/01/25 11:38 1 TAB Lorazepam 2 mg Q4HPRN PRN IV 12/29/24 09:15 12/31/24 23:11 2 MG Quetiapine Fumarate 25 mg HS PO 12/30/24 22:00 12/31/24 21:30 25 MG Chlordiazepoxide HCl 20 mg Q6H PO 12/31/24 14:00 01/01/25 11:38 20 MG Gabapentin 400 mg TID PO 12/31/24 14:00 01/01/25 11:39 400 MG Folic Acid 1 mg DAILY PO 01/01/25 10:00 01/01/25 11:38 1 MG Magnesium Oxide 400 mg DAILY PO 01/01/25 10:00 01/01/25 11:38 400 MG Thiamine HCl 100 mg DAILY PO 01/01/25 10:00 01/01/25 11:39 100 MG Laboratory Results Laboratory Tests 12/31/24 05:04 Microbiology Microbiology Date/Time Source Procedure Growth Status 12/29/24 14:44 Nose MRSA Screen - Final Complete Assessment/Plan Assessment/Plan To continue current regimen as he is on. Social Service to arrange for safety evaluation and walker and resources for alcohol and amphetamine abuse. Once these are done today we will plan to discharge him in the morning. Discussed with the patient regarding care plan. Plan discussed with: Patient, Other My Orders Orders - RENU PEPPER MD Procedure Category Date Status Time Gabapentin Capsule PHA 12/31/24 In Process (Neurontin Capsule) 14:00 Folic Acid Tablet PHA 01/01/25 In Process 10:00 Magnesium Oxide PHA 01/01/25 In Process Tablet (Mag-Ox Tablet) 10:00 Thiamine Tab PHA 01/01/25 In Process 10:00 * Marketing Professor CONS 01/01/25 Transmitted Consult Problem List: (1) Alcohol intoxication (2) Generalized weakness (3) Syncope and collapse Date of Service: Jan 01, 2025 Billing Provider: RENU PEPPER MD Common Visit Codes: [id number] INP/OBS CARE(MOD) RENU PEPPER MD Jan 01, 2025 13:08
[2025-01-02 05:00] VITALS: BP 150/82; PULSE 65; RESP 19; TEMP 97.7; O2SAT 95
[2025-01-02 08:00] VITALS: PULSE 109
[2025-01-02 09:00] VITALS: BP 121/79; PULSE 89; RESP 16; TEMP 97.8; O2SAT 93
[2025-01-02] MEDS ORDERED: CHL10C PO (11:17)
[2025-01-02] MEDS ORDERED: GABA-1251 PO (11:17)
[2025-01-02] MEDS ORDERED: MULTTAB99 PO (11:17)
[2025-01-02] MEDS ORDERED: QUET50TA PO (11:17)
--- NOTE | 2025-01-02 11:18 | DVHDS2 ---
Discharge Summary Date of Admission Dec 27, 2024 at 19:24 Date of Discharge: Jan 02, 2025 Labs/Diagnostic Data: Laboratory Results Test 12/31/24 05:04 12/29/24 16:53 12/29/24 14:32 12/29/24 09:48 White Blood Count 3.8 10^3/uL (4.4-10.8) Red Blood Count 4.13 10^6/uL (4.5-5.90) Hemoglobin 12.8 g/dL (13.5-17.5) Hematocrit 38.4 % (41.0-53.0) Mean Corpuscular Volume 93.2 fL (80.0-100.0) Mean Corpuscular Hemoglobin 31.1 pg (28.0-32.0) Mean Corpuscular Hemoglobin Concent 33.4 g/dL (32.0-36.0) Red Cell Distribution Width 13.5 % (11.8-14.3) Platelet Count 179 10^3/uL (140-450) Mean Platelet Volume 7.4 fL (6.9-10.8) Neutrophils (%) (Auto) 45.7 % (37.0-80.0) Lymphocytes (%) (Auto) 31.9 % (10.0-50.0) Monocytes (%) (Auto) 14.7 % (0.0-12.0) Eosinophils (%) (Auto) 7.1 % (0.0-7.0) Basophils (%) (Auto) 0.6 % (0.0-2.0) Neutrophils # (Auto) 1.7 10 ^3/uL (1.6-8.6) Lymphocytes # (Auto) 1.2 10 ^3/uL (0.4-5.4) Monocytes # (Auto) 0.6 10 ^3/uL (0-1.3) Eosinophils # (Auto) 0.3 10 ^3/uL (0-0.8) Basophils # (Auto) 0 10 ^3/uL (0-0.2) Nucleated Red Blood Cells 0.1 % Sodium Level 141 mmol/L (136-145) Potassium Level 3.6 mmol/L (3.5-5.1) Chloride Level 107 mmol/L (98-107) Carbon Dioxide Level 26 mmol/L (20-31) Anion Gap 8 (5-15) Blood Urea Nitrogen 17 mg/dL (9-23) Creatinine 0.74 mg/dL (0.700-1.30) Glomerular Filtration Rate Calc 106 mL/min (>90) BUN/Creatinine Ratio 23.0 (10.0-20.0) Serum Glucose 83 mg/dL (74-106) Calcium Level 9.2 mg/dL (8.7-10.4) Magnesium Level 2.2 mg/dL (1.6-2.6) Total Bilirubin 1.1 mg/dL (0.2-1.0) Aspartate Amino Transferase (AST) 27 U/L (13-40) Alanine Aminotransferase (ALT) 17 U/L (7-40) Alkaline Phosphatase 46 U/L (46-116) Total Protein 5.6 g/dL (5.7-8.2) Albumin 3.7 g/dL (3.2-4.8) Urine Opiates Screen Neg (NEGATIVE) Urine Fentanyl Screen Neg (NEGATIVE) Urine Barbiturates Screen Neg (NEGATIVE) Urine Phencyclidine Screen Neg (NEGATIVE) Urine Amphetamines Screen Pos (NEGATIVE) Urine Benzodiazepines Screen Neg (NEGATIVE) Urine Cocaine Screen Neg (NEGATIVE) Urine Cannabinoids Screen Neg (NEGATIVE) Ammonia < 10 umol/L (11-32) Lactic Acid Level 1.8 mmol/L (0.4-2.0) Test 12/28/24 15:38 12/28/24 05:54 Plasma/Serum Blood Alcohol < 3.0 mg/dL (<10) Hepatitis B Surface Antigen Negative (Negative) Hepatitis C Antibody Negative (Negative) Other Laboratory Tests 12/31/24 05:04 Brief Hx & Hospital Course: 59-year-old male who was seen here several hours ago. Patient had negative labs and CT scan at the time. Patient was intoxicated with alcohol. Patient eloped from the emergency room and went to [facility] where he had another witnessed syncopal event. Patient eloped against a bench and did not hit his head per bystanders. Patient has a agreed to a full workup and evaluation and potential admission at this time. He is admitted and noted to be in alcohol withdrawals. Patient received IV Ativan drip for alcohol withdrawals in the ICU. Subsequently once he is withdrawals improved downgrade to medical floor. Where he remained stable. Patient continued on alcohol withdrawal protocol with the Librium and gabapentin. Patient underwent psychiatric evaluation. Patient counseled and educated on multiple occasions regarding his illicit drug use, alcohol use and advised to seek help with outpatient AA meetings and drug rehab programs. Patient is otherwise advised to continue the medications as prescribed. Overall patient's symptoms have resolved he is feeling better back to baseline normal status. Therefore it is felt he can be safely discharged home with a close outpatient follow up. I have talked with the patient and he verbalized understanding of his hospital diagnosis, treatment he received, discharge medications, discharge instructions and agree with the discharge follow-up plan of care. Consults/Reason for consult PSYCHIATRY CONSULT FOLLOW UP NOTE SUBJECTIVE 59 yo M with bipolar disorder, gives his name, location, reason for presenting, gives date as summer 2024. Says he is doing great, much better than before. Sleeping okay in the hospital. He denies SI, HI, AVH, no paranoia. Pt denies access to firearms. Pt does report he last used drugs when prior to admission. He is currently in OP care and in therapy. He wants to join AA. He does not intend to continue using. He says he just wants to go home. MENTAL STATUS EXAM The patient is a 59-year-old male who appears his stated age, and exhibits no signs of psychomotor agitation or retardation. He is calm and cooperative throughout the evaluation, maintaining appropriate eye contact. His speech is of normal rate, rhythm, and volume. He describes his mood as doing great, much better than before, and his affect is full-range and congruent with his stated mood. His thought processes are linear and goal-directed, with no evidence of delusional thinking, obsessions, or preoccupations. He denies auditory or visual hallucinations, and there are no signs of perceptual disturbances or paranoia. The patient is alert and oriented to person, place, and situation, appropriately identifying the current season as summer 2024. His insight into his psychiatric condition appears fair to good, and his judgment is intact, particularly in relation to his discharge planning and commitment to sobriety. ASSESSMENT Patient is a 59-year-old male with a history of bipolar disorder who presents with stabilized mood and behavior. He reports significant improvement and is sleeping adequately in the hospital. He denies suicidal ideation (SI), homicidal ideation (HI), auditory/visual hallucinations (AVH), or paranoia. He has no access to firearms and expresses a strong desire to return home. Patient reports last using substances prior to hospital admission and is currently engaged in outpatient care and therapy. He states motivation to remain sober and expresses interest in joining Alcoholics Anonymous (AA). There is no evidence of acute psychiatric decompensation at this time. He is future-oriented and cooperative with the treatment team. A 5150 involuntary psychiatric hold is not indicated. RECOMMENDATIONS 1. Legal & Disposition: 5150 not indicated. Patient is psychiatrically stable and can be safely discharged home. 2. Follow-up: Assist patient in scheduling follow-up with his established outpatient psychiatrist and therapist. 3. Substance Use Support: Provide AA referral information and local substance use treatment resources. 4. Crisis Planning: Provide written and verbal information about 11/01 psychiatric crisis services and emergency contact instructions. 5. Safety: Reiterate importance of maintaining sobriety and attending all follow-up care appointments. AMA VASQUES MD Jan 02, 2025 15:51 Condition at Discharge: Stable Final Diagnosis/Problems List Alcohol withdrawals, alcohol use disorder, methamphetamine use Discharge Disposition: Home Discharge Instruct/Medications Diet: Consistent carbohydrate, Cardiac 2g Na,low cholest Activity: No Restrictions, As Tolerated Follow Up/Referral: Primary care physician next week for alcohol use disorder. Follow up per with the AA meetings and alcohol rehab programs. Medications: Take all the medications as prescribed. New Medications: Chlordiazepoxide Hcl (Ni-1) (I (Librium) 10 Mg Cap 10 MG PO TID, #30 CAP Gabapentin (Gabapentin) 400 Mg Cap 400 MG PO TID, #10 CAP Multiple Vitamin (Mvi Tab) 1 Tab Tb 1 TAB PO DAILY, #30 TAB Quetiapine Fumerate (Seroquel) 50 Mg Tab 1 TAB PO QPM, #30 TAB 1 Refill Scheduled Chlordiazepoxide Hcl (Ni-1) (I (Librium), 10 MG PO TID Gabapentin (Gabapentin), 400 MG PO TID Multiple Vitamin (Mvi Tab), 1 TAB PO DAILY Quetiapine Fumerate (Seroquel), 1 TAB PO QPM Discharge Statement: "Patient was advised to return to the ER or call 911 if any headaches, dizziness, shortness of breath, chest pain, abdominal pain, bleeding, fevers, or worsening of medical condition. Patient was counseled about treatment plan, medications, possible side effects, patientverbalized understanding. All questions were answered to the best of my ability. This discharge took greater then 30 minutes in planning, reviewing documentation, counseling the patient, and discussing with other team members." ASSESSMENT ASSESSMENT Assessment Alcohol withdrawals, alcohol use disorder, methamphetamine use Date of Service: Jan 02, 2025 Billing Provider: RENU PEPPER MD Common Visit Codes: [id number] DISCH DAY >30min RENU PEPPER MD Jan 02, 2025 11:17
[2025-01-02 13:00] VITALS: BP 156/107; PULSE 89; RESP 21; TEMP 98; O2SAT 94
--- NOTE | 2025-01-02 15:51 | DVHINCON2 ---
Date of Service if different f: Jan 02, 2025 Time of Service: 15:49 Consultation ([facility]) Consulting Physician: Jasen Labs Laboratory Tests Test 12/28/24 05:54 12/28/24 15:38 12/29/24 09:48 12/29/24 14:32 Hepatitis B Surface Antigen Negative (Negative) Hepatitis C Antibody Negative (Negative) Plasma/Serum Blood Alcohol < 3.0 mg/dL (<10) Lactic Acid Level 1.8 mmol/L (0.4-2.0) Ammonia < 10 umol/L (11-32) Test 12/29/24 16:53 12/31/24 05:04 Urine Opiates Screen Neg (NEGATIVE) Urine Fentanyl Screen Neg (NEGATIVE) Urine Barbiturates Screen Neg (NEGATIVE) Urine Phencyclidine Screen Neg (NEGATIVE) Urine Amphetamines Screen Pos (NEGATIVE) Urine Benzodiazepines Screen Neg (NEGATIVE) Urine Cocaine Screen Neg (NEGATIVE) Urine Cannabinoids Screen Neg (NEGATIVE) White Blood Count 3.8 10^3/uL (4.4-10.8) Red Blood Count 4.13 10^6/uL (4.5-5.90) Hemoglobin 12.8 g/dL (13.5-17.5) Hematocrit 38.4 % (41.0-53.0) Mean Corpuscular Volume 93.2 fL (80.0-100.0) Mean Corpuscular Hemoglobin 31.1 pg (28.0-32.0) Mean Corpuscular Hemoglobin Concent 33.4 g/dL (32.0-36.0) Red Cell Distribution Width 13.5 % (11.8-14.3) Platelet Count 179 10^3/uL (140-450) Mean Platelet Volume 7.4 fL (6.9-10.8) Neutrophils (%) (Auto) 45.7 % (37.0-80.0) Lymphocytes (%) (Auto) 31.9 % (10.0-50.0) Monocytes (%) (Auto) 14.7 % (0.0-12.0) Eosinophils (%) (Auto) 7.1 % (0.0-7.0) Basophils (%) (Auto) 0.6 % (0.0-2.0) Neutrophils # (Auto) 1.7 10 ^3/uL (1.6-8.6) Lymphocytes # (Auto) 1.2 10 ^3/uL (0.4-5.4) Monocytes # (Auto) 0.6 10 ^3/uL (0-1.3) Eosinophils # (Auto) 0.3 10 ^3/uL (0-0.8) Basophils # (Auto) 0 10 ^3/uL (0-0.2) Nucleated Red Blood Cells 0.1 % Sodium Level 141 mmol/L (136-145) Potassium Level 3.6 mmol/L (3.5-5.1) Chloride Level 107 mmol/L (98-107) Carbon Dioxide Level 26 mmol/L (20-31) Anion Gap 8 (5-15) Blood Urea Nitrogen 17 mg/dL (9-23) Creatinine 0.74 mg/dL (0.700-1.30) Glomerular Filtration Rate Calc 106 mL/min (>90) BUN/Creatinine Ratio 23.0 (10.0-20.0) Serum Glucose 83 mg/dL (74-106) Calcium Level 9.2 mg/dL (8.7-10.4) Magnesium Level 2.2 mg/dL (1.6-2.6) Total Bilirubin 1.1 mg/dL (0.2-1.0) Aspartate Amino Transf (AST/SGOT) 27 U/L (13-40) Alanine Aminotransferase (ALT/SGPT) 17 U/L (7-40) Alkaline Phosphatase 46 U/L (46-116) Total Protein 5.6 g/dL (5.7-8.2) Albumin 3.7 g/dL (3.2-4.8) Microbiology Date/Time Source Procedure Growth Status 12/29/24 14:44 Nose MRSA Screen - Final Complete Vitals Vital Signs Date Time Temp Pulse Resp B/P (MAP) Pulse Ox O2 Delivery O2 Flow Rate FiO2 01/02/25 13:00 98.0 89 21 156/107 (123) 94 98.0 01/02/25 07:59 Room Air* 0 21 Current medications Current Medications Medications Dose Ordered Sig/Justo Route Start Time Stop Time Status Last Admin Dose Admin Sodium Chloride 10 ml Q8HR IV 12/27/24 22:00 01/02/25 15:05 10 ML Docusate Sodium 100 mg BIDPRN PRN PO 12/27/24 19:30 Acetaminophen 650 mg Q6HP PRN PO 12/27/24 19:30 12/30/24 21:48 650 MG Acetaminophen/ Hydrocodone Bitart 1 tab Q4HP PRN PO 12/27/24 19:30 01/02/25 11:49 1 TAB Ondansetron HCl 4 mg Q4HP PRN IV 12/27/24 19:30 12/30/24 20:26 4 MG Enoxaparin Sodium 40 mg DAILY SC 12/28/24 10:00 01/02/25 08:46 40 MG Multivitamins 1 tab DAILY PO 12/28/24 10:00 01/02/25 08:46 1 TAB Lorazepam 2 mg Q4HPRN PRN IV 12/29/24 09:15 01/01/25 21:25 2 MG Quetiapine Fumarate 25 mg HS PO 12/30/24 22:00 01/01/25 21:25 25 MG Chlordiazepoxide HCl 20 mg Q6H PO 12/31/24 14:00 01/02/25 15:06 20 MG Gabapentin 400 mg TID PO 12/31/24 14:00 01/02/25 15:06 400 MG Folic Acid 1 mg DAILY PO 01/01/25 10:00 01/02/25 08:45 1 MG Magnesium Oxide 400 mg DAILY PO 01/01/25 10:00 01/02/25 08:45 400 MG Thiamine HCl 100 mg DAILY PO 01/01/25 10:00 01/02/25 08:45 100 MG PSYCHIATRY CONSULT FOLLOW UP NOTE SUBJECTIVE 59 yo M with bipolar disorder, gives his name, location, reason for presenting, gives date as summer 2024. Says he is doing great, much better than before. Sleeping okay in the hospital. He denies SI, HI, AVH, no paranoia. Pt denies access to firearms. Pt does report he last used drugs when prior to admission. He is currently in OP care and in therapy. He wants to join AA. He does not intend to continue using. He says he just wants to go home. MENTAL STATUS EXAM The patient is a 59-year-old male who appears his stated age, and exhibits no signs of psychomotor agitation or retardation. He is calm and cooperative throughout the evaluation, maintaining appropriate eye contact. His speech is of normal rate, rhythm, and volume. He describes his mood as doing great, much better than before, and his affect is full-range and congruent with his stated mood. His thought processes are linear and goal-directed, with no evidence of delusional thinking, obsessions, or preoccupations. He denies auditory or visual hallucinations, and there are no signs of perceptual disturbances or paranoia. The patient is alert and oriented to person, place, and situation, appropriately identifying the current season as summer 2024. His insight into his psychiatric condition appears fair to good, and his judgment is intact, particularly in relation to his discharge planning and commitment to sobriety. ASSESSMENT Patient is a 59-year-old male with a history of bipolar disorder who presents with stabilized mood and behavior. He reports significant improvement and is sleeping adequately in the hospital. He denies suicidal ideation (SI), homicidal ideation (HI), auditory/visual hallucinations (AVH), or paranoia. He has no access to firearms and expresses a strong desire to return home. Patient reports last using substances prior to hospital admission and is currently engaged in outpatient care and therapy. He states motivation to remain sober and expresses interest in joining Alcoholics Anonymous (AA). There is no evidence of acute psychiatric decompensation at this time. He is future-oriented and cooperative with the treatment team. A 5150 involuntary psychiatric hold is not indicated. RECOMMENDATIONS 1. Legal & Disposition: 5150 not indicated. Patient is psychiatrically stable and can be safely discharged home. 2. Follow-up: Assist patient in scheduling follow-up with his established outpatient psychiatrist and therapist. 3. Substance Use Support: Provide AA referral information and local substance use treatment resources. 4. Crisis Planning: Provide written and verbal information about 11/01 psychiatric crisis services and emergency contact instructions. 5. Safety: Reiterate importance of maintaining sobriety and attending all follow-up care appointments. AMA VASQUES MD Jan 02, 2025 15:51
[2025-01-02 17:00] VITALS: BP 138/95; PULSE 80; RESP 17; TEMP 98.5; O2SAT 93
[2025-01-02 18:37] VITALS: BP 138/95; PULSE 80; RESP 17; TEMP 98.5; O2SAT 93
== END 2025-01-02 20:20 | disposition home or self-care (01) | DRG 775 ==
LOC: ER 16:23 → EDBD 16:23 → OVERFLOW 19:24 → WEST WING 22:00 → CENTRAL 12-28 23:00 → ICU WEST 12-29 14:22 → TELE-CENTR 12-30 17:29
PROVIDERS: ADMIT Hospitalist; ATTEND Hospitalist
DX: F10.139 Alcohol abuse with withdrawal, unspecified (principal); F10.129 Alcohol abuse with intoxication, unspecified; E87.20 Acidosis, unspecified; F31.9 Bipolar disorder, unspecified; F15.10 Other stimulant abuse, uncomplicated; F41.9 Anxiety disorder, unspecified; Z91.199 Patient's noncompliance with other medical treatment and regimen due to unspecified reason; Z78.1 Physical restraint status
CPT/HCPCS: 36415; 80053; 80307; 80320; 82140; 83605; 83735; 85025; 86803; 87081; 87340; 96361; 96374; 97163; G0378; J2405

== ENCOUNTER 2025-04-28 09:38 | Emergency (ER) | payer MEDICAID ==
[~2025-04-28] VITALS: Ht 180.3 cm; Wt 100.0 kg
[~2025-04-28 09:38] MED LIST: CHL10C PO; GABA-1251 PO; MULTTAB99 PO; QUET50TA PO
[2025-04-28 09:44] VITALS: BP 149/92; PULSE 91; RESP 18; TEMP 98.3; O2SAT 99
== END 2025-04-28 12:51 | disposition left against medical advice (07) ==
LOC: ER 09:38
DX: S81.852A Open bite, left lower leg, initial encounter (principal); Z53.21 Procedure and treatment not carried out due to patient leaving prior to being seen by health care provider; W57.XXXA Bitten or stung by nonvenomous insect and other nonvenomous arthropods, initial encounter; Y93.89 Activity, other specified; Y92.89 Other specified places as the place of occurrence of the external cause; Y99.8 Other external cause status